=== PATIENT | female | born 1940 | race Caucasian/White ===

== ENCOUNTER 2017-08-20 06:39 | Inpatient (IN) | payer MEDICARE, OTHER ==
[2017-08-20] MEDS ORDERED: SODIUM CHLORIDE 0.9% 1000ML 1,000 ML IVS ONE (07:16)
[2017-08-20] MEDS ORDERED: ACETAMINOPHEN 325 MG TAB PO ONE (07:17)
--- NOTE | 2017-08-20 07:28 | ED.PDOC ---
History of Present Illness - General Chief Complaint: Problem Stated Complaint: dry heaves, chills, nausea, burning c urination, Time Seen by Provider: 08/20/17 07:15 Source: patient Exam Limitations: no limitations - History of Present Illness Initial Comments: Lauren Mcghee 77 y/o female brought by POV stating was dry heaving last night with chills,feeling nauseated ,no vomiting.She was treated for uti 2 weeks ago in [place].No cough ,diarrhea,ill contact. Timing/Duration: 24 hours Severity: moderate Improving Factors: nothing Associated Symptoms: other - see hpi Allergies/Adverse Reactions: Allergies Morphine Allergy (Verified 08/20/17 06:56) Penicillins Allergy (Verified 08/20/17 06:56) Review of Systems - Review of Systems Constitutional: States: see HPI, fever EENTM: States: no symptoms reported Respiratory: States: no symptoms reported Cardiology: States: no symptoms reported Gastrointestinal/Abdominal: States: no symptoms reported Genitourinary: States: see HPI Musculoskeletal: States: no symptoms reported All other Systems: Reviewed and Negative, No Change from Baseline Past Medical History (General) - Patient Medical History Hx Seizures: No Hx Stroke: No Hx Dementia: No Hx Asthma: No Hx of COPD: No Hx Cardiac Disorders: No Hx Congestive Heart Failure: No Hx Pacemaker: No Hx Hypertension: Yes Hx Thyroid Disease: No Hx Diabetes: No Hx Gastroesophageal Reflux: No Hx Renal Disease: No Hx Cancer: No Hx of HIV: No Hx Hepatitis C: No Hx MRSA: No Surgical History: appendectomy, cholecystectomy, other - hysterectomy,lumbar spine,c-spine - Vaccination History Hx Tetanus, Diphtheria Vaccination: No Hx Influenza Vaccination: No Hx Pneumococcal Vaccination: Yes - 2017 - Social History Hx Tobacco Use: Yes Hx Alcohol Use: Yes - daily beer whiskey Hx Substance Use: No Hx Substance Use Treatment: No Hx Depression: No Hx Physical Abuse: No Hx Emotional Abuse: No - Activities of Daily Living Grooming Ability: Independent Eating (Feeding) Ability: Independent Toileting Ability: Independent Family Medical History - Family History Mother Family History: Unknown Hx Family Hypertension: Yes - mom Physical Exam - Physical Exam General Appearance: Alert, Comfortable, No apparent distress Eye Exam: bilateral normal Ears, Nose, Throat: hearing grossly normal, normal ENT inspection, normal pharynx Neck: non-tender, full range of motion, supple Respiratory: chest non-tender, lungs clear, normal breath sounds, no respiratory distress Cardiovascular/Chest: normal peripheral pulses, no gallop, no murmur, tachycardia Peripheral Pulses: radial,right: 2+, radial,left: 2+ Gastrointestinal/Abdominal: normal bowel sounds, non tender, soft, no organomegaly Back Exam: no CVA tenderness, no vertebral tenderness Extremity: non-tender, no pedal edema, no calf tenderness Neurologic: alert, oriented x 3 Skin Exam: normal color, warm/dry Lymphatic: no adenopathy Progress - Progress Progress: 08/20/17 07:31 Vital Signs - 8 hr 08/20/17 06:50 Temperature 103.9 F H Pulse Rate [ 128 H monitor] Respiratory 16 Rate Blood Pressure 137/79 [Left Arm] O2 Sat by Pulse 95 Oximetry - Results/Orders Results/Orders: 08/20/17 07:09 URINE CULTURE W/COLONY COUNT Stat 08/20/17 07:16 IV Care:Saline Lock per Protoc QSHIFT Sodium Chloride 0.9% 1000ML [Ns 1000 ml] 1,000 ml IVS ONCE 08/20/17 07:35 Abdoment/Pelvis w/o Contrast [CT] Stat 08/20/17 07:45 Be Our Guest Tray (BOG) ONCE 08/20/17 08:09 levoFLOXacin 500MG IV [Levaquin 500MG IV] 500 mg Premix Bag 1 bag IVPB ONCE Laboratory Results - last 24 hr 08/20/17 08/20/17 08/20/17 07:09 07:38 07:38 WBC 13.6 H RBC 3.51 L Hgb 11.0 L Hct 32.2 L MCV 91.7 MCH 31.3 H MCHC 34.3 RDW 12.3 Plt Count 198 MPV 6.7 L Absolute Neuts (auto) 11.60 H Absolute Lymphs (auto) 0.40 L Absolute Monos (auto) 1.40 H Absolute Eos (auto) 0.00 Absolute Basos (auto) 0.20 H Neutrophils % 85.3 H Lymphocytes % 3.2 L Monocytes % 10.2 H Eosinophils % 0.0 L Basophils % 1.3 PT 13.5 H INR 1.170 PTT (SP) 25.4 Sodium 130 L Potassium 2.7 L Chloride 96 L Carbon Dioxide 24 Anion Gap 12.7 BUN 13 Creatinine 0.84 BUN/Creatinine Ratio 15.5 Random Glucose 129 H Serum Osmolality 262.6 L Lactic Acid 1.4 Calcium 8.7 Magnesium 1.2 L Total Bilirubin 1.8 H Direct Bilirubin 0.4 H Indirect Bilirubin 1.4 H AST 25 ALT 13 Alkaline Phosphatase 83 Creatine Kinase 29 CK-MB (CK-2) 0.5 CK-MB (CK-2) % Not Reportable Troponin I < 0.02 Serum Total Protein 7.2 Albumin 3.4 Lipase Urine Color Yellow Urine Appearance Cloudy Urine pH 6.5 Ur Specific [place] 1.015 Urine Protein 100 H Urine Glucose (UA) Negative Urine Ketones Negative Urine Blood Small H Urine Nitrite Negative Urine Bilirubin Negative Urine Urobilinogen 1.0 Ur Leukocyte Esterase Large H Urine RBC 5-10 H Urine WBC 20-30 H Ur Epithelial Cells 3-5 Urine Bacteria 3+ H 08/20/17 07:38 WBC RBC Hgb Hct MCV MCH MCHC RDW Plt Count MPV Absolute Neuts (auto) Absolute Lymphs (auto) Absolute Monos (auto) Absolute Eos (auto) Absolute Basos (auto) Neutrophils % Lymphocytes % Monocytes % Eosinophils % Basophils % PT INR PTT (SP) Sodium Potassium Chloride Carbon Dioxide Anion Gap BUN Creatinine BUN/Creatinine Ratio Random Glucose Serum Osmolality Lactic Acid Calcium Magnesium Total Bilirubin Direct Bilirubin Indirect Bilirubin AST ALT Alkaline Phosphatase Creatine Kinase CK-MB (CK-2) CK-MB (CK-2) % Troponin I Serum Total Protein Albumin Lipase 29 Urine Color Urine Appearance Urine pH Ur Specific [place] Urine Protein Urine Glucose (UA) Urine Ketones Urine Blood Urine Nitrite Urine Bilirubin Urine Urobilinogen Ur Leukocyte Esterase Urine RBC Urine WBC Ur Epithelial Cells Urine Bacteria - EKG/XRAY/CT XRAY: chest - no acute cardiopumonary abnormalities CT Ordered: Yes - abd/p-6 mm non obstructive calculus minimal fat stranding Departure - Departure Clinical Impression: Pyelonephritis, acute, Chills with fever, Left nephrolithiasis, Hypokalemia, Hypomagnesemia Time of Disposition: 08:56 Disposition: Admit Patient Condition: Fair Departure Forms: Patient Portal Self Enrollment Referrals: Gilberto Beck MD [Primary Care Provider] - 1-2 Weeks Decision To Admit - Decistion To Admit Decision to Admit Reason: Admit from ER Decision to Admit Date: 08/20/17 - D/W Hector Ariza -ANP/hospitalist Decision to Admit Time: 08:54
--- NOTE | 2017-08-20 07:35 | RAD ---
EXAM: Single view chest. INDICATION: Fever. COMPARISON: Chest x-ray: None. FINDINGS: Cardiac silhouette: Unremarkable. Patt: Unremarkable. Lobar consolidation: None. Pleural effusion: None. Pneumothorax: None. Other: None. Bones: There is a nonunited fracture involving the distal right clavicle. There are changes of anterior cervical fusion Other: None. IMPRESSION: 1. No acute cardiopulmonary process. Electronically signed by: Rishabh Yun MD 08/20/2017 7:33 AM CDT Workstation: [id number]
[2017-08-20] MEDS ORDERED: levoFLOXacin 500MG IV 500 MG in PREMIX BAG 1 BAG IVPB ONE (08:09)
[2017-08-20] MEDS ORDERED: levoFLOXacin 500MG IV 100 ML IVPB ONE (08:13)
--- NOTE | 2017-08-20 08:26 | CT ---
PROCEDURE: Abdoment/Pelvis w/o Contrast HISTORY: fever/uti Indication: Same as above Comparison: None Technique: CT of the abdomen and pelvis was done without intravenous contrast. Images were obtained from the lung base to the level of the pubic symphysis in axial plane, followed by orthogonal sagittal and coronal reconstruction. Oral contrast was not given for the study. This exam was performed according to our departmental dose-optimization program, which includes automated exposure control, adjustment of the mA and/or KV according to the patient's size and/or use of iterative reconstruction technique. FINDINGS: Images through the lung bases do not show any focal infiltrates or pleural effusions. Benign cortical cysts are seen in the left kidney. There is presence of a 6 mm nonobstructive calculus in the lower pole of the left kidney. There is minimal stranding of the fat planes around the left kidney, which may be as a result of left renal infection/inflammation or due to prior episodes of obstruction. There is no right-sided nephrolithiasis. There is no hydroureteronephrosis on either side. The urinary bladder is unremarkable There is a small hiatal hernia. There is presence of 1.2 cm benign cyst/hemangioma in the subdiaphragmatic surface of the liver The pancreas, spleen and the bilateral adrenal glands appear unremarkable, given the limitation of lack of intravenous contrast. The gallbladder is not visualized and is most likely surgically absent The small bowel appears unremarkable, without any evidence of small bowel obstruction or bowel wall thickening. There is no CT evidence of pericecal inflammatory change or ileocecal mesenteric adenitis. The ileocecal junction appears unremarkable. The appendix is not visualized There is no CT evidence of acute colonic diverticulitis or colitis or large bowel obstruction. There is large bowel diverticulosis and constipation There is no pathological lymphadenopathy in the retroperitoneum or in the pelvic region. There is no evidence of free fluid or free air in the abdomen or the pelvic region. There is no clinically significant abdominal aortic aneurysm. There is a small fat-containing right inguinal hernia defect The visualized lumbar spine shows scoliotic curvature and prior surgery at L3/L4 level The paravertebral soft tissues are unremarkable. The remainder of the pelvic structures are unremarkable. IMPRESSION: There is presence of a 6 mm nonobstructive calculus in the lower pole of the left kidney. There is minimal stranding of the fat planes around the left kidney, which may be as a result of left renal infection/inflammation or due to prior episodes of obstruction. There is no right-sided nephrolithiasis. There is no hydroureteronephrosis on either side. The urinary bladder is unremarkable There is a small hiatal hernia. There is a small fat-containing right inguinal hernia defect There is presence of 1.2 cm benign cyst/hemangioma in the subdiaphragmatic surface of the liver Electronically signed by: Dylon Fernandez MD 08/20/2017 8:24 AM CDT Workstation: [id number]
[2017-08-20] MEDS ORDERED: MAGNESIUM SULFATE PREMIX 2GM 2 GM in PREMIX BAG 1 BAG IVPB ONE (08:31)
[2017-08-20] MEDS ORDERED: MAGNESIUM SULFATE PREMIX 2GM 50 ML IVPB ONE (09:07)
--- NOTE | 2017-08-20 09:09 | HP ---
SUPERVISING PHYSICIAN: Jackson Wheeler MD CHIEF COMPLAINT: Fever and chills. HISTORY OF PRESENT ILLNESS: Ms. Mcghee is a 77 year-old female patient that presented to the Emergency Room via private owned vehicle after she had some dry haves that started last night along with some chills and subjective fever. She noted that she had been treating herself for a urinary tract infection with [id number] medication while she was in [place] in the last week. The patient continued to have increasing fever and chills and presented to the Emergency Room for further evaluation and treatment. The patient was seen in the Emergency Room initially with a urinalysis showing 100 protein, large leukoesterase and microscopic revealing 20 to 30 WBC and 3+ bacteria. Her CBC showed a leukocytosis of 13,600 with a left shift. Chemistries showed she had a low potassium, sodium and magnesium. Her lipase was negative. She initially presented with a fever of 103.9. She was taken to CT for abdominal and pelvic CT without contrast. Per radiology interpretation, there was note of a 6 mm nonobstructing calculus in the lower pole of the left kidney with minimal stranding of fat planes around the left kidney, possibly from renal infection or inflammation due to prior obstruction. The patient noted she has had a stone in her left kidney for well over 20 years and has never passed a stone. The patient is now going to be admitted for sepsis as she was significantly tachycardiac at 128 with an elevated temperature of 103.9 with source of infection identified as urine with concerns for left-sided pyelonephritis. The patient was admitted in stable condition. Antibiotics were initiated in the Emergency Room with Levaquin after blood cultures were completed. Her initial lactic was within normal limits at 1.4. PAST MEDICAL HISTORY: 1. Hypertension. 2. Hyperlipidemia. 3. Insomnia. 4. Urinary incontinence. 5. Seasonal allergies. 6. Bilateral macular degeneration. PAST SURGICAL HISTORY: 1. Gallbladder. 2. Appendectomy. 3. Hysterectomy. 4. Lumbar fusion. CURRENT MEDICATIONS: 1. Allergy relief, Nasacort 50 mcg in both nares at bedtime. 2. Trusopt 10 mL 2% ophthalmic drops, 1 or 2 drops twice a day. 3. Vesicare 5 mg daily. 4. Trazodone 50 mg at bedtime. 5. Simvastatin 40 mg at bedtime. 6. Omeprazole 40 mg daily. 7. Cymbalta 60 mg daily. 8. Cetirizine 10 mg daily. 9. Glucosamine 1 capsule daily. 10. Calcium supplement 1200 mg daily. ALLERGIES: MORPHINE AND PENICILLIN. FAMILY HISTORY: Unremarkable and noncontributory. SOCIAL HISTORY: Patient lives in [place], [place] and is here visiting friends. She is retired from [employer]. She is . She has a history of previous smoking but quit 20 years previously. She drinks alcohol on a daily basis, 1 to 2 drinks of either beer or high ball mixer. REVIEW OF SYSTEMS: GENERAL: As noted in history of present illness, fever and chills. HEENT: Denies earaches, sore throat, nasal congestion.\ RESPIRATORY: Denies shortness of breath, cough, wheezing. CARDIAC: Denies chest pain, palpitations or syncopal episodes or pedal edema. GASTROINTESTINAL: She had some nausea but no vomiting. No reported diarrhea or constipation. GENITOURINARY: As noted in history of present illness. Ongoing dysuria for the last two weeks. No hematuria. MUSCULOSKELETAL: No back pain. NEUROLOGICAL: Denies any ataxia or seizures or other neurological deficits. PHYSICAL EXAMINATION: VITAL SIGNS: Initial temperature in the Emergency Department was 103.9, pulse 128, blood pressure 137/79, respirations 16, saturation 95% on room air. Admission weight 53.0 kg. GENERAL: The patient on admission appears to be in no acute distress, resting comfortably and alert. HEENT: Patient wears glasses. Tympanic membranes clear bilaterally. Oropharynx was pink and moist without any lesions. Mucous membranes were mildly dry. NECK: Supple, non-tender, with full range of motion, no jugular venous distention. CHEST: Lungs clear to auscultation bilaterally without any rhonchi, rales, or wheezes. CARDIOVASCULAR: Regular rate and rhythm showing tachycardic rhythm initially on the monitor. No murmurs, rubs, or gallops appreciate. ABDOMEN: Soft, non-tender, positive bowel sounds. BACK: Atraumatic, no CVA tenderness. EXTREMITIES: No cyanosis, clubbing, or edema. NEUROLOGIC: She is alert and oriented x 3. LABORATORY: CBC did show a leukocytosis of 13,600 with hemoglobin 11, hematocrit 32.2, platelet count 108,000. Differential shows a left shift. Coagulation studies showed normal PTT of 25.4, PT slightly elevated 13.5. INR normal. Chemistries showed low sodium at 130, low potassium at 2.7, chloride 96. BUN 13, creatinine 0.84, lactic acid 1.4, calcium 8.7, magnesium low at 1.2. Liver functions showed elevated total bilirubin at 1.8 with a direct bilirubin 0.4 and indirect of 1.4. AST and ALT both normal as well as alkaline phosphatase. Troponin was less than 0.02, lipase 29. Urinalysis showed 100 protein and small amount of blood. Microscopic revealed 5 to 10 RBC, 20 to 30 WBC, 3 to 5 epithelials, and 3+ bacteria. MICROBIOLOGY: Blood cultures pending. Urine culture pending. RADIOLOGY: Chest x-ray initially in the Emergency Department per radiology interpretation of single-view showed showed no acute cardiopulmonary disease. She had abdominal-pelvic CT without contrast and per radiology interpretation was note of a 6 mm nonobstructing calculus in the lower pole of the left kidney with minimal stranding of the fat planes around the left kidney which could be due to renal inflammation or infection or due to previous episodes of obstruction. There was no right-sided nephrolithiasis, no hydroureter nephrosis on either side. Urinary both was unremarkable. There was also note of a small hiatal hernia, fat-containing right inguinal defect and presence of a 1.2 cm benign cyst/hemangioma in the subdiaphragmatic surface of the liver. ASSESSMENT: 1. Left-sided pyelonephritis as noted with a fever, leukocytosis, significant pyuria and CT findings consistent with infection or inflammation of the left kidney 2. Sepsis secondary to urinary tract infection and developing pyelonephritis 3. Elevated bilirubin in patient with previous cholecystectomy and a having chronic daily alcohol usage. 4. Hypertension. 5. Chronic left-sided nephrolithiasis with no history of previous obstruction with CT showing a 6 mm stone in the pole of the left kidney with no signs of acute obstruction. 6. Electrolyte balance to include hyponatremia, hypokalemia and hypomagnesemia likely from acute illness to include pyelonephritis. PLAN: The patient is going to be admitted to the hospital for treatment of left-sided pyelonephritis and sepsis secondary to the urinary tract infection. She was initiated on antibiotics after blood cultures were completed to include Levaquin. We will continue with Levaquin. She will be on IV fluids with potassium as well as given IV magnesium in efforts to normalize her electrolytes. Will have her on DVT prophylaxis as protocol. Will anticipate length of stay to be 2 to 3 days. Will plan to reevaluate laboratory studies in the morning. Until stable and able to be discharged for continuation of treatment in outpatient setting, we will continue to monitor and treat appropriately. #[id number] [facility]
[2017-08-20] MEDS ORDERED: POTASSIUM CHLORIDE 20 MEQ TAB ONE (09:17)
[2017-08-20] MEDS ORDERED: POTASSIUM CHLORIDE 20 MEQ TAB PO ONE (09:23)
[2017-08-20] MEDS ORDERED: ONDANSETRON INJ 4 MG/2 ML VIAL IV PRN (10:29)
[2017-08-20] MEDS ORDERED: SODIUM CHLORIDE 0.9% (FLUSH) 10 ML SYG IV PRN (10:29)
[2017-08-20] MEDS: IV SET AND CAP CHANGE INJ INJ SCH (11:15)
[2017-08-20] MEDS: KCL 40MEQ/NS 1,000 ML IVS PRN ×2 (11:22→22:31)
--- NOTE | 2017-08-20 12:48 | PCM.CORE ---
Physician DVT/VTE - Nurse DVT Assessment & Total Each Risk Factor Represents 3 Points: Age over 75 years DVT Assessment Score: 3 - 3-4 High Risk Treatments: Early Ambulation *, Sequential Compression Device Pharmacological: Enoxaparin 40 mg SQ Daily
[2017-08-20] MEDS: ACETAMINOPHEN 325 MG TAB PO PRN (15:06)
[2017-08-20] MEDS ORDERED: IBUPROFEN 400 MG TAB PO PRN (16:21)
[2017-08-20] MEDS ORDERED: IBUPROFEN 400 MG TAB PO ONE (16:21)
[2017-08-20] MEDS: traZODone HCL 50 MG TAB PO SCH (20:34)
[2017-08-20] MEDS: ENOXAPARIN SODIUM 40 MG/0.4 ML SYG SUBCU SCH (20:34)
[2017-08-20] MEDS: FLUTICASONE PROP 0.05% NASAL 16 GM BTTL BNAS SCH (20:38)
[2017-08-20] MEDS: DORZOLAMIDE 2% OPHTH SOL 1 DROP BOTH_EYES SCH (20:39)
[2017-08-20] MEDS ORDERED: levoFLOXacin 250MG IV 250 MG in PREMIX BAG 1 BAG IVPB ONE (22:19)
[2017-08-20] MEDS ORDERED: levoFLOXacin 250MG IV 50 ML IVPB ONE (22:26)
[2017-08-21] MEDS: OMEPRAZOLE CAP 20 MG CAP PO SCH (05:57)
[2017-08-21] MEDS ORDERED: POTASSIUM CHLORIDE 10 MEQ TAB PO SCH (07:30)
[2017-08-21] MEDS ORDERED: levoFLOXacin 500MG IV 0 ML IVPB ONE (08:31)
[2017-08-21] MEDS ORDERED: levoFLOXacin 500MG IV 500 MG in PREMIX BAG 1 BAG IVPB SCH (09:00)
[2017-08-21] MEDS ORDERED: levoFLOXacin 250MG IV 50 ML IVPB ONE (09:29)
[2017-08-21] MEDS: CALCIUM CARBONATE-VITAMIN D 500 MG TAB PO SCH (09:33)
[2017-08-21] MEDS: TOLTERODINE TARTRATE ER 4 MG CAP PO SCH (09:33)
[2017-08-21] MEDS: DULoxetine HCL 30 MG CAP PO SCH (09:33)
[2017-08-21] MEDS: CETIRIZINE HCL 10 MG TAB PO SCH (09:34)
[2017-08-21] MEDS: levoFLOXacin 250MG IV 250 MG in PREMIX BAG 1 BAG IVPB SCH (09:34)
[2017-08-21] MEDS: DORZOLAMIDE 2% OPHTH SOL 1 DROP BOTH_EYES SCH ×2 (09:34→21:04)
[2017-08-21] MEDS ORDERED: MAGNESIUM SULFATE PREMIX 2GM 2 GM in PREMIX BAG 1 BAG IVPB ONE (12:05)
[2017-08-21] MEDS ORDERED: MAGNESIUM SULFATE PREMIX 2GM 50 ML IVPB ONE (12:23)
[2017-08-21] MEDS: KCL 40MEQ/NS 1,000 ML IVS PRN (17:11)
[2017-08-21] MEDS: ACETAMINOPHEN 325 MG TAB PO PRN (19:35)
[2017-08-21] MEDS: FLUTICASONE PROP 0.05% NASAL 16 GM BTTL BNAS SCH (21:03)
[2017-08-21] MEDS: ENOXAPARIN SODIUM 40 MG/0.4 ML SYG SUBCU SCH (21:03)
[2017-08-21] MEDS: traZODone HCL 50 MG TAB PO SCH (21:03)
[2017-08-22] MEDS: OMEPRAZOLE CAP 20 MG CAP PO SCH (06:12)
--- NOTE | 2017-08-22 07:59 | PN ---
SUPERVISING PHYSICIAN: Aidan Noguera MD DATE: 08/21/17 SUBJECTIVE: The patient has had one additional temperature in the last 12 hours of 103.2. She has had no nausea or vomiting. She notes she is feeling better than when she came in. OBJECTIVE: VITAL SIGNS: T-max 103.2. Pulse 78. Blood pressure 124/76. Respirations 16. Saturation 96% on room air. CHEST: Lungs clear to auscultation. HEART: Regular rate and rhythm. ABDOMEN: Soft, nontender. Positive bowel sounds. EXTREMITIES: No cyanosis, clubbing or edema. NEUROLOGIC: Alert and oriented times three. LABORATORY: White count today down to 9,600, hemoglobin 10.4, hematocrit 30.9, platelet count 165,000, differential shows a continued left shift. Chemistries show normal electrolytes today with a sodium 135, potassium 4.1, glucose 95, BUN 12, creatinine 0.6, magnesium up to 1.7, bilirubin down to 1.5, AST slightly elevated at 54. Alkaline phosphatase and ALT are both normal. MICROBIOLOGY: She had two sets of blood cultures on admission that all show gram negative rods. She had two additional blood cultures after the second temperature yesterday that have remained negative for 24 hours. Gram stain showed gram negative ros. Final culture results and sensitivities pending. RADIOLOGY: No additional radiographic studies completed today. ASSESSMENT: 1. Left sided pyelonephritis with bacteremia secondary to gram negative sacha showing some improvement with Levaquin. 2. Sepsis due to gram negative sacha and urinary tract infection with pyelonephritis. 3. Elevated bilirubin, showing improvement after IV fluids. 4. Hypertension. 5. Chronic left sided nephrolithiasis with no history of previous obstructions with CT revealing a 6 mm stone in the pole of the left kidney with no acute signs of obstruction. 6. Electrolyte imbalance including hyponatremia, hypokalemia, hypomagnesemia with sodium and potassium returned to baseline after IV fluids and magnesium near baseline normal with IV replacement. PLAN: We will continue with current treatment plan with Levaquin awaiting final culture and sensitivity results and target antibiotic therapy according to those results. She will be saline locked today as electrolytes normalize and give her additional 2 grams of magnesium IV and repeat labs in the morning to include chemistries. We will anticipate at least an additional 24 to 48 hours until the patient is afebrile for 48 hours prior to discharge with the patient on Levaquin awaiting final culture results for sensitivity report. Until then, we will continue to monitor the patient closely and treat appropriately. #[id number] [facility]
[2017-08-22] MEDS: CETIRIZINE HCL 10 MG TAB PO SCH (08:43)
[2017-08-22] MEDS: CALCIUM CARBONATE-VITAMIN D 500 MG TAB PO SCH (08:43)
[2017-08-22] MEDS: TOLTERODINE TARTRATE ER 4 MG CAP PO SCH (08:43)
[2017-08-22] MEDS: DORZOLAMIDE 2% OPHTH SOL 1 DROP BOTH_EYES SCH ×2 (08:44→21:22)
[2017-08-22] MEDS: DULoxetine HCL 30 MG CAP PO SCH (08:46)
[2017-08-22] MEDS ORDERED: levoFLOXacin 250MG IV 50 ML IVPB ONE (08:47)
[2017-08-22] MEDS: SODIUM CHLORIDE 0.9% (FLUSH) 10 ML SYG IV SCH ×2 (08:47→21:23)
[2017-08-22] MEDS: levoFLOXacin 250MG IV 250 MG in PREMIX BAG 1 BAG IVPB SCH (09:13)
--- NOTE | 2017-08-22 13:48 | PN ---
SUPERVISING PHYSICIAN: Aidan Noguera MD DATE: 08/22/17 SUBJECTIVE: The patient continues to be without a fever today, going on 24 hours. She has had no nausea or vomiting. She notes she feels well. She is having continued dysuria, no flank pain. She did have additional sets of blood cultures come up positive today, but again has remained afebrile for 24 hours on Levaquin. OBJECTIVE: VITAL SIGNS: T-max 99.6. Pulse 78. Blood pressure 138/83. Respirations 18. Saturation 98% on room air. I&Os show positive balance of 313 with 2163 in and 1850 out. Weight 54.2 kg. CHEST: Lungs clear to auscultation. HEART: Regular rate and rhythm. ABDOMEN: Soft, nontender. Positive bowel sounds. EXTREMITIES: No cyanosis, clubbing or edema. NEUROLOGIC: Alert and oriented times three. LABORATORY: White count remains within normal limits at 7,300. Hemoglobin down to 9.7, hematocrit 28.0, platelet count 180,000. Differential does show resolving left shift. Chemistries today show mild hyponatremia with sodium 133 , potassium 3.6, BUN 7, creatinine 0.61. AST is down to 52. All other liver functions remain within normal limits. MICROBIOLOGY: All four sets of blood cultures have been positive for gram negative sacha with the initial set on admission showing Escherichia coli which was high sensitive. The patient remains on Levaquin. Her urine culture also showed the same organism which was high sensitive. ASSESSMENT: 1. Left sided pyelonephritis with bacteremia secondary to Escherichia coli showing to be high sensitive with the patient showing clinical improvement having been on Levaquin since admission, now without a fever for 24 hours. 2. Sepsis due to Escherichia coli as noted in #1 and underlying urinary tract infection with pyelonephritis, improved with Levaquin. 3. Elevated bilirubin, improved after IV fluids. 4. Hypertension, stable. 5. Chronic left sided nephrolithiasis with no history of previous obstructions with CT on admission revealing a 6 mm stone in the pole of the left kidney with no acute signs of obstruction. 6. Electrolyte imbalance initially with hyponatremia, hypokalemia, hypomagnesemia, now returned to baseline status after IV replacement. PLAN: We will continue continue abnormalities for an additional 24 hours and monitor closely. She has been on Levaquin since admission and is improving clinically. Should she be without a fever for the next 24 hours, for a total if 48 hours, the patient could be discharged to continue outpatient treatment plan for a total of 14 day course of Levaquin for underlying bacteremia and pyelonephritis. I will repeat a urinalysis today to ensure her urine is cleaning up. I did discuss also needing followup with her doctor in [place] as soon as possible and the importance with continuing with antibiotic therapy once discharged. Again, anticipate discharging tomorrow on Levaquin for a total of 14 days including current hospital course if the patient remains afebrile for 48 hours. Until discharge, we will continue to monitor the patient closely and treat appropriately. #[id number] [facility]
[2017-08-22] MEDS ORDERED: BIFIDOBACTERIUM INFANTIS 4 MG CAP ONE (13:54)
[2017-08-22] MEDS: BIFIDOBACTERIUM INFANTIS 4 MG CAP PO SCH (14:00)
[2017-08-22] MEDS: ACETAMINOPHEN 325 MG TAB PO PRN (16:37)
[2017-08-22] MEDS: ENOXAPARIN SODIUM 40 MG/0.4 ML SYG SUBCU SCH (21:21)
[2017-08-22] MEDS: FLUTICASONE PROP 0.05% NASAL 16 GM BTTL BNAS SCH (21:21)
[2017-08-22] MEDS: traZODone HCL 50 MG TAB PO SCH (21:22)
[2017-08-23] MEDS: ACETAMINOPHEN 325 MG TAB PO PRN ×2 (05:51→20:23)
[2017-08-23] MEDS: OMEPRAZOLE CAP 20 MG CAP PO SCH (06:00)
[2017-08-23] MEDS: DULoxetine HCL 30 MG CAP PO SCH (08:35)
[2017-08-23] MEDS: BIFIDOBACTERIUM INFANTIS 4 MG CAP PO SCH (08:36)
[2017-08-23] MEDS: TOLTERODINE TARTRATE ER 4 MG CAP PO SCH (08:36)
[2017-08-23] MEDS: CALCIUM CARBONATE-VITAMIN D 500 MG TAB PO SCH (08:36)
[2017-08-23] MEDS: CETIRIZINE HCL 10 MG TAB PO SCH (08:36)
[2017-08-23] MEDS: SODIUM CHLORIDE 0.9% (FLUSH) 10 ML SYG IV SCH ×2 (09:10→20:26)
[2017-08-23] MEDS: DORZOLAMIDE 2% OPHTH SOL 1 DROP BOTH_EYES SCH ×2 (09:10→20:27)
[2017-08-23] MEDS ORDERED: levoFLOXacin 250MG IV 50 ML IVPB ONE (09:15)
[2017-08-23] MEDS: levoFLOXacin 250MG IV 250 MG in PREMIX BAG 1 BAG IVPB SCH (09:35)
[2017-08-23] MEDS ORDERED: traZODone HCL 50 MG TAB PO SCH (12:09)
--- NOTE | 2017-08-23 13:19 | PN ---
SUPERVISING PHYSICIAN: Aidan Noguera MD DATE: 08/23/17 SUBJECTIVE: The patient is lying in her hospital bed. Her is at the bedside. She complained of a headache last night when her fever was up and she does have some weakness, but denies any chest pain, shortness of breath, nausea , vomiting, diarrhea or constipation. She did state that normally gets 100 mg of trazodone at night and she only received 50 last night. She did not sleep as well as normal. OBJECTIVE: VITAL SIGNS: T-max 24 hours is 99.9. Heart rate 87. Blood pressure 134/77. Respiratory rate 18. O2 saturation 94% on room air. RESPIRATORY: Essentially clear to auscultation bilaterally. CARDIAC: Regular rate and rhythm. GASTROINTESTINAL: Abdomen is soft, nondistended, nontender. Bowel sounds are positive. NEUROLOGIC: Awake, alert and oriented times three. LABORATORY: Final blood culture is positive for E. coli sensitive to Levaquin. Final urine culture is E. coli and also sensitive to Levaquin. All other labs and films have been reviewed via the EMR. ASSESSMENT: 1. Left sided pyelonephritis with bacteremia secondary to Escherichia coli. She is presently on Levaquin. She had a low grade fever within the last 24 hours. 2. Sepsis due to #1. 3. Elevated bilirubin, improved. 4. Hypertension. 5. Chronic left sided nephrolithiasis with no history of previous obstructions with CT on admission revealing a 6 mm stone in the pole of the left kidney with no acute signs of obstruction. 6. Electrolyte imbalances, now improved. PLAN: We will continue present supportive care including Levaquin. Plan for discharge in the morning hopefully as long as she is fever free over 24 hours. She will have 14 total days of Levaquin and she is to followup with her primary care physician in [place]. Also, repeated her urinalysis to make sure that is clear. Recommend probiotics with her antibiotics on discharge. I have increased her trazodone to 100 mg at night. We will continue to monitor the patient closely and follow as needed. #[id number] [facility]
[2017-08-23] MEDS: IV SET AND CAP CHANGE INJ INJ SCH (15:44)
[2017-08-23] MEDS: ENOXAPARIN SODIUM 40 MG/0.4 ML SYG SUBCU SCH (20:26)
[2017-08-23] MEDS: FLUTICASONE PROP 0.05% NASAL 16 GM BTTL BNAS SCH (20:28)
[2017-08-24] MEDS: OMEPRAZOLE CAP 20 MG CAP PO SCH (06:41)
[2017-08-24] MEDS ORDERED: levoFLOXacin 250MG IV 50 ML IVPB ONE (08:29)
[2017-08-24] MEDS: CETIRIZINE HCL 10 MG TAB PO SCH (08:36)
[2017-08-24] MEDS: CALCIUM CARBONATE-VITAMIN D 500 MG TAB PO SCH (08:36)
[2017-08-24] MEDS: TOLTERODINE TARTRATE ER 4 MG CAP PO SCH (08:36)
[2017-08-24] MEDS: DULoxetine HCL 30 MG CAP PO SCH (08:38)
[2017-08-24] MEDS: levoFLOXacin 250MG IV 250 MG in PREMIX BAG 1 BAG IVPB SCH (08:39)
[2017-08-24] MEDS: BIFIDOBACTERIUM INFANTIS 4 MG CAP PO SCH (08:39)
[2017-08-24] MEDS: SODIUM CHLORIDE 0.9% (FLUSH) 10 ML SYG IV SCH (08:41)
[2017-08-24] MEDS: DORZOLAMIDE 2% OPHTH SOL 1 DROP BOTH_EYES SCH (08:50)
[2017-08-24] MEDS ORDERED: POTASSIUM CHLORIDE 20 MEQ TAB PO ONE (09:49)
[2017-08-24] MEDS ORDERED: MAGNESIUM OXIDE 400 MG TAB PO SCH (10:00)
--- NOTE | 2017-08-24 10:22 | DS ---
SUPERVISING PHYSICIAN: Aidan Noguera MD DISCHARGE DIAGNOSIS: 1. Left sided pyelonephritis with bacteremia secondary to Escherichia coli. She is presently on Levaquin. She has been fever free for the last 24 to 36 hours. 2. Sepsis due to #1. 3. Elevated bilirubin, improved. 4. Hypertension. 5. Chronic left sided nephrolithiasis with no history of previous obstructions with CT on admission revealing a 6 mm stone in the pole of the left kidney with no acute signs of obstruction. 6. Electrolyte imbalance, now improved. HISTORY OF PRESENT ILLNESS: This is a 77-year-old female patient who presented to the Emergency Room after she had some dry heaves that started night prior to her admission. She also had chills and subjective fever. She had been treating herself for urinary tract infection with [id number] medications while she is in [place] last week. She was visiting family here and continued to have including fever and chills and presented to the Emergency Room for evaluation and treatment. Her urinalysis showed 100 urine protein, large leukocyte esterase and microscopic revealing 20 to 30 urine WBCs and 3+ bacteria. Her CBC showed a leukocytosis of 13,600 with a left shift. She also had low potassium, sodium and magnesium. Lipase was negative. She had a fever in the Emergency Room of 103.9. CT of the abdomen and pelvis showed there was a 6 mm nonobstructing calculus in the lower pole of the left kidney with minimal stranding of fat planes and the left kidney showed renal infection or inflammation due to prior obstruction. The patient noted she has had a stone in her left kidney for well over 20 years and has never passed a stone. She was admitted for sepsis to the hospital. She was significantly tachycardic at 128, elevated temperature of 103.9 and admitted for diagnosis of left sided pyelonephritis. In the Emergency Room, antibiotics were initiated with Levaquin. Cultures were done prior to administration of her antibiotics and her initial lactate was 1.4. HOSPITAL COURSE: Her temperature continued to improve although she did have several nights with temperature. At this point, she has been fever free for the last 36 hours. Her vital signs remain stable. Her white count normalized down to 6.2. Her potassium is slightly low at 3.2, but she will receive some oral potassium prior to leaving. Magnesium was also low at 1.3, so I will give her some oral magnesium prior to her discharge. TSH was 3.2. Her blood cultures were positive for E. coli and sensitive to Levaquin which she was given in the hospital. Her urine cultures also showed pansensitivity including Levaquin. At this point, she has been fever free and stable and she will be discharged home. DISCHARGE PLAN: The patient will be discharged home in stable condition. She is to resume her previous activity and diet. She is to followup with her primary care physician, Dr. Diaz in [place] when she gets back. She has been given a disc as well as some lab reports. She is going to be discharged on Levaquin and a probiotic that she will take for a total of 14 days of antibiotic therapy. It is recommended that she have her lab done including a magnesium at her primary care physician's office and she also needs followup with the kidney stone if possible. She is supposed to drive back to [place] on Monday and while she still here in [place] if she has any further problems or complications, she can return to the hospital. DISCHARGE MEDICATIONS: 1. Fluticasone nasal. 2. VESIcare. 3. Trazodone. 4. Simvastatin. 5. Omeprazole. 6. Cymbalta. 7. Cetirizine. 8. Glucosamine. 9. Calcium. 10. Trusopt ophthalmic drops. 11. Levaquin. 12. Bactrim. Dr. Noguera is the collaborating physician and available for consultation. #[id number] [facility]
[2017-08-24 12:22] VITALS: BP 133/80; TEMP 98.2; O2SAT 93
== END 2017-08-24 10:55 | disposition home or self-care (01) | DRG 872 ==
LOC: ER 06:39 → MS 09:08
PROVIDERS: ADMIT Nurse Practitioner Family; ATTEND Nurse Practitioner Acute Care
DX: A41.51 Sepsis due to Escherichia coli [E. coli] (principal); N12 Tubulo-interstitial nephritis, not specified as acute or chronic; E87.1 Hypo-osmolality and hyponatremia; Z88.5 Allergy status to narcotic agent; Z88.0 Allergy status to penicillin; N20.0 Calculus of kidney; I10 Essential (primary) hypertension; E87.6 Hypokalemia; E83.42 Hypomagnesemia; E78.5 Hyperlipidemia, unspecified; G47.00 Insomnia, unspecified; R32 Unspecified urinary incontinence; H35.30 Unspecified macular degeneration; Z98.1 Arthrodesis status; Z87.891 Personal history of nicotine dependence; F10.20 Alcohol dependence, uncomplicated